=== PATIENT | male | born 1950 | race Caucasian/White ===

== ENCOUNTER 2016-09-04 03:14 | Emergency (ER) | payer BC ==
[~2016-09-04] VITALS: Ht 205.7 cm; Wt 142.3 kg
[~2016-09-04 03:14] MED LIST: ASPIR-TRIN325 M1 PO; Allegra PO; CARDURA4 MG PO; Coumadin,Jantoven PO; LOTENSIN20 MG PO; PAXIL30 MG PO; PROTONIX40 MG PO; Percocet 5/325,Endoc PO; TRICOR145 MG PO
[2016-09-04 03:57] LABS: HEMATOCRIT 42.1 % (38.0-50.0); MCHC 33.5 G/DL (30.0-36.0); MCV 89.6 FL (86-99); MEAN PLAT.VOLUME 10.9 uM^3 (9.0-12.4); PLATELET COUNT 206 K/uL (156-360); WHITE BLOOD COUNT 6.5 K/uL (4.1-10.2)
[2016-09-04 04:09] LABS: CHLORIDE 108 mEq/L (99-109); SODIUM 139 mEq/L (136-147)
[2016-09-04 04:11] LABS: GLUCOSE 113 mg/dL (70-99)
[2016-09-04 04:12] LABS: ANION GAP 8 MEQ/L (2-14)
[2016-09-04 04:15] LABS: GFR ESTIMATE (CALCULATED) > 59 mL/min/
[2016-09-04 04:16] LABS: UREA NITROGEN (BUN) 12 mg/dL (9-23)
[2016-09-04] MEDS ORDERED: LEVAQUIN750 MG PO (04:43)
[2016-09-04] MEDS ORDERED: PREDNISONE20 MG PO (04:43)
[2016-09-04 05:15] VITALS: BP 152/94
== END 2016-09-04 05:20 | disposition home or self-care (01) ==
LOC: EME 03:14
DX: J20.9 Acute bronchitis, unspecified (principal); J45.909 Unspecified asthma, uncomplicated; I10 Essential (primary) hypertension; E78.5 Hyperlipidemia, unspecified; Z79.01 Long term (current) use of anticoagulants; Z99.81 Dependence on supplemental oxygen
CPT/HCPCS: 71020; 80048; 85027; 93005; 94640; 99281; 99283; J1100

== ENCOUNTER 2016-09-11 03:32 | Emergency (ER) | payer BC ==
[~2016-09-11] VITALS: Ht 205.7 cm; Wt 143.1 kg
[~2016-09-11 03:32] MED LIST changes: +LEVAQUIN750 MG PO; +PREDNISONE20 MG PO
[2016-09-11 04:33] LABS: HEMATOCRIT 41.4 % (38.0-50.0); MCH 30.8 PG (29.0-34.0); MCHC 34.1 G/DL (30.0-36.0); MCV 90.4 FL (86-99); MEAN PLAT.VOLUME 11.1 uM^3 (9.0-12.4); PLATELET COUNT 200 K/uL (156-360); RBC DIS.WIDTH-CV 13.4 % (11.8-14.6); RBC DIS.WIDTH-SD 44.2 % (39-53); RED BLOOD COUNT 4.58 M/uL (4.00-5.50); WHITE BLOOD COUNT 9.7 K/uL (4.1-10.2)
[2016-09-11 04:44] LABS: CHLORIDE 107 mEq/L (99-109); POTASSIUM 3.6 mEq/L (3.7-5.4); SODIUM 140 mEq/L (136-147)
[2016-09-11 04:46] LABS: GLUCOSE 102 mg/dL (70-99)
[2016-09-11 04:47] LABS: ANION GAP 9 MEQ/L (2-14)
[2016-09-11 04:50] LABS: GFR ESTIMATE (CALCULATED) > 59 mL/min/
[2016-09-11 04:51] LABS: UREA NITROGEN (BUN) 17 mg/dL (9-23)
[2016-09-11 05:04] LABS: TROP-I INTERPRETATION NEGATIVE; TROPONIN-I < 0.01 ng/mL (0.0-0.30)
[2016-09-11] MEDS ORDERED: PROVENTIL,2.5 MG/3 M IH (06:22)
[2016-09-11] MEDS ORDERED: AERONEB GO NEB1 EACH MC (06:24)
[2016-09-11] MEDS ORDERED: PROVENTIL HFA6.7 GM IH (06:27)
[2016-09-11 07:16] VITALS: BP 162/85
== END 2016-09-11 07:16 | disposition home or self-care (01) ==
LOC: EME 03:32
DX: R06.00 Dyspnea, unspecified (principal); R06.01 Orthopnea; R09.81 Nasal congestion; R05 Cough; K44.9 Diaphragmatic hernia without obstruction or gangrene; I10 Essential (primary) hypertension; E78.5 Hyperlipidemia, unspecified; Z79.01 Long term (current) use of anticoagulants
CPT/HCPCS: 71020; 71275; 80048; 83880; 84484; 85027; 93005; 94640; 99281; 99284; J7040

== ENCOUNTER 2017-02-01 03:40 | Emergency (ER) | payer OTHER ==
[~2017-02-01] VITALS: Ht 205.7 cm; Wt 141.6 kg
[~2017-02-01 03:40] MED LIST changes: +AERONEB GO NEB1 EACH MC; +PROVENTIL HFA6.7 GM IH; +PROVENTIL,2.5 MG/3 M IH
[2017-02-01 04:25] LABS: EOSINOPHIL (%) 2.9 % (0-5); EOSINOPHIL COUNT 0.2 K/uL (0-0.3); HEMATOCRIT 38.9 % (38.0-50.0); IMMATURE GRANULOCYTE (%) 0.3 % (0.0-0.7); INSTRUMENT ABS NEUTROPHIL CT 3.3 K/uL; LYMPHOCYTE COUNT 1.5 K/uL (1.0-2.8); MCH 31.2 PG (29.0-34.0); MCHC 34.4 G/DL (30.0-36.0); MCV 90.5 FL (86-99); MEAN PLAT.VOLUME 11.3 uM^3 (9.0-12.4); MONOCYTE (%) 12.2 % (3-12); MONOCYTE COUNT 0.7 K/uL (0-0.8); NEUTROPHIL (%) 57.7 % (45-76); NEUTROPHIL COUNT 3.3 K/uL (1.8-6.4); PLATELET COUNT 189 K/uL (156-360); RBC DIS.WIDTH-CV 12.9 % (11.8-14.6); RBC DIS.WIDTH-SD 42.7 % (39-53); WHITE BLOOD COUNT 5.8 K/uL (4.1-10.2)
[2017-02-01 04:33] LABS: CHLORIDE 111 mEq/L (99-109); POTASSIUM 4.2 mEq/L (3.7-5.4); SODIUM 142 mEq/L (136-147)
[2017-02-01 04:34] LABS: MAGNESIUM 1.9 mg/dL (1.3-2.7)
[2017-02-01 04:36] LABS: GLUCOSE 125 mg/dL (70-99)
[2017-02-01 04:37] LABS: ANION GAP 9 MEQ/L (2-14)
[2017-02-01 04:38] LABS: TOTAL BILIRUBIN 0.4 mg/dL (0.0-1.0)
[2017-02-01 04:39] LABS: ALKALINE PHOSPHATASE 61 IU/L (3-129)
[2017-02-01 04:40] LABS: GFR ESTIMATE (CALCULATED) > 59 mL/min/ (58.99-99999)
[2017-02-01 04:41] LABS: UREA NITROGEN (BUN) 16 mg/dL (9-23)
[2017-02-01 04:43] LABS: CREATINE KINASE 162 IU/L (1-294); TOTAL CK 162 IU/L (1-294)
[2017-02-01 04:48] LABS: TROP-I INTERPRETATION NEGATIVE; TROPONIN-I < 0.01 ng/mL (0.0-0.30)
[2017-02-01 04:49] LABS: CK-MB 2.8 ng/mL (0.0-4.9)
[2017-02-01 09:30] LABS: TROP-I INTERPRETATION NEGATIVE; TROPONIN-I < 0.01 ng/mL (0.0-0.30)
[2017-02-01 10:37] VITALS: BP 148/83
== END 2017-02-01 10:38 | disposition home or self-care (01) ==
LOC: EME 03:40
PROVIDERS: Emergency Medicine
DX: R07.89 Other chest pain (principal); I10 Essential (primary) hypertension; E78.5 Hyperlipidemia, unspecified; G89.29 Other chronic pain; Z79.01 Long term (current) use of anticoagulants
CPT/HCPCS: 71020; 80053; 82550; 82553; 83735; 84484; 85025; 93005